=== PATIENT | female | born 1940 | race Caucasian/White ===

== ENCOUNTER 2018-03-19 07:04 | Inpatient (IN) | payer MEDICARE, OTHER ==
[~2018-03-19] VITALS: Ht 175.3 cm; Wt 52.2 kg
[~2018-03-19 07:04] MED LIST: CARAFATE1 GM/10 ML PO; NEXIUM20 M1; TYLENOL; [UNRECOGNIZED DRUG - OTHER] SQ
[2018-03-19] MEDS ORDERED: SODIUM CHLORIDE 0.9% 1000ML 1,000 ML IV STA (08:22)
[2018-03-19] MEDS ORDERED: ONDANSETRON HCL INJ 2 MG/ML VIAL IV STA (08:22)
[2018-03-19] MEDS ORDERED: MORPHINE SULFATE 2 MG/ML SYR IV STA (08:22)
--- NOTE | 2018-03-19 08:26 | Diagnostic Imaging Report ---
Bilateral hip and AP radiograph of the pelvis HISTORY: Pain, fall COMPARISON: None FINDINGS: There is diffuse osteopenia. There is a mildly displaced intertrochanteric fracture through the left proximal femur. There is approximately 5 mm of maximal displacement. The left femoroacetabular alignment is maintained. Dedicated right hip radiographs demonstrate no evidence of acute fracture or malalignment. AP radiograph of the pelvis demonstrates no other acute displaced fractures. Bowel gas partially obscures visualization of the sacrum, which limits evaluation. There are moderate degenerative changes of bilateral hips and degenerative changes of the lower lumbar spine. Surgical clips are present in the pelvis. Bilateral calcified phleboliths. IMPRESSION: Acute, mildly displaced intertrochanteric fracture through the left proximal femur. No evidence of acute right hip or pelvic fracture. Signed by: Dr. De Delatorre MD on 03/19/2018 8:22 AM
[2018-03-19] MEDS ORDERED: MORPHINE SULFATE INJ 4 MG/ML INJ IV NR (09:00)
[2018-03-19 10:19] LABS: HEMATOCRIT 41.5 % (34.2-44.1); HEMOGLOBIN 13.6 g/dL (12.0-16.0); MEAN CORPUSCULAR HEMOGLOBIN 30.7 pg (28-32); MEAN CORPUSCULAR HGB CONC 32.8 g/dL (31-35); MEAN CORPUSCULAR VOLUME 93.7 fL (81-99); PLATELET COUNT 172 x10e3/uL (140-360); RED BLOOD COUNT 4.43 x10e6/uL (3.6-5.1); RED CELL DISTRIBUTION WIDTH 12.7 % (11.7-14.4)
[2018-03-19 10:20] LABS: BASOPHILS % 0.4 % (0.0-1.0); LYMPHOCYTES # (AUTO) 0.7 (1.0-3.2); LYMPHOCYTES % 9.2 % (18.0-39.1); MONOCYTES # (AUTO) 0.9 (0.2-0.8); MONOCYTES % 11.1 % (4.4-11.3); NEUTROPHILS # (AUTO) 6.3 (2.1-6.9); NEUTROPHILS % 78.9 % (38.7-80.0)
--- NOTE | 2018-03-19 10:21 | Diagnostic Imaging Report ---
Examination: Single AP view of the chest. COMPARISON: None. INDICATION: Status post fall IMPRESSION: 1. Lines and Tubes: None 2. Lungs are well-inflated. 3-4 mm nodular density projecting in the right upper lung likely represents a calcified trauma. Lungs are grossly clear. No consolidation or pulmonary edema. No effusion or pneumothorax. 3. Cardiomediastinal silhouette is normal. Pulmonary vasculature is normal. 4. No acute bony abnormalities. Signed by: Dr. Marcos Richards M.D. on 03/19/2018 10:17 AM
[2018-03-19 10:22] LABS: INR 0.96; PARTIAL THROMBOPLASTIN TIME 28.3 seconds (23.8-35.5); PROTHROMBIN TIME 13.7 seconds (11.9-14.5)
[2018-03-19 10:34] LABS: ANION GAP 12.8 mmol/L (8-16); BLOOD UREA NITROGEN 9 mg/dL (7-26); BUN/CREATININE RATIO 13 (6-25); CARBON DIOXIDE 27 mmol/L (22-29); CHLORIDE 107 mmol/L (98-107); CREATININE, SERUM 0.69 mg/dL (0.57-1.11); EST GLOMERULAR FILTRATION RATE > 60 ML/MIN (60-); POTASSIUM 3.8 mmol/L (3.5-5.1); SODIUM 143 mmol/L (136-145)
[2018-03-19 10:35] LABS: ALANINE AMINOTRANSFERASE 23 IU/L (0-55); ALBUMIN 3.4 g/dL (3.5-5.0); ALBUMIN/GLOBULIN RATIO 1.2 (0.8-2.0); ALKALINE PHOSPHATASE 106 IU/L (40-150); CALCIUM 9.1 mg/dL (8.4-10.2); CREATINE KINASE 138 IU/L (29-168); GLUCOSE 123 mg/dL (74-118)
[2018-03-19] MEDS: SODIUM CHLORIDE 0.9% 1000ML 1,000 ML IV SCH ×2 (10:47→20:41)
[2018-03-19] MEDS ORDERED: ONDANSETRON HCL INJ 2 MG/ML VIAL IV PRN (11:00)
[2018-03-19 11:24] LABS: BILIRUBIN,URINE NEGATIVE (NEGATIVE); CLARITY,URINE CLEAR (CLEAR); COLOR,URINE YELLOW (YELLOW); KETONES,URINE NEGATIVE (NEGATIVE); LEUKOCYTE ESTERASE ,URINE NEGATIVE (NEGATIVE); NITRITE,URINE NEGATIVE (NEGATIVE); PROTEIN,URINE DIPSTICK NEGATIVE (NEGATIVE); URINE UROBILINOGEN 0.2 mg/dL (0.2 - 1)
--- OUTSIDE RECORDS SUMMARY | 2018-03-19 11:47 | XMS REPORT ---
Author Author [facility] Address Unknown Phone Unavailable Care Team Providers Care Pharmacy Technician Trainee Name Role Phone Luba DURÁN Unavailable Unavailable Problems This patient has no known problems. Allergies, Adverse Reactions, Alerts This patient has no known allergies or adverse reactions. Medications This patient has no known medications. Results Test Description Test Time Test Comments Text Results Atomic Results Result Comments CHEST SINGLE (PORTABLE) 2018-03-19 10:16:00 [facility] [address] [address] Patient Name: BHAVANI HERNANDEZ MR #: [id number] : 1940 Age/Sex: 77/F Req #: [id number] Adm Physician: Ordered by: ZEINAB DURÁN MD Report #: [id number] Location: ER Room/Bed: Procedure: [id number] DX/CHEST SINGLE (PORTABLE) Exam Date: 03/19/18 Exam Time: 924 REPORT STATUS: Signed Examination: Single AP view of the chest. DUANE RISON: None. INDICATION: Status post fall IMPRESSION: 1. Lines and Tubes: None 2. Lungs are well-inflated. 3-4 mm nodular density projecting in the right upper lung likely represents a calcified trauma. Lungs are grossly clear. No consolidation or pulmonary edema. No effusion or pneumothorax. 3. Cardiomediastinal silhouette is normal. Pulmonary vasculature is normal. 4. No acute bony abnormalities. Signed by: Dr. Jasper Richards M.D. on 03/19/2018 10:17 AM Dictated By: JASPER RICHARDS MD 16 Transcribed By: RUDDY on 03/19/181016 COPY TO: ZEINAB DURÁN MD HIPS BILAT 3-4VWS (+/- PELVIS) 2018-03-19 08:16:00 [address] [address] Patient Name: BHAVANI HERNANDEZ MR #: [id number] : 1940 Age/Sex: 77/F Req #: [id number] Adm Physician: Ordered by: ZEINAB DURÁN MD Report #: [id number] Location: ER Room/Bed: Procedure: [id number] DX/HIPS BILAT 3-4VWS (+/- PELVIS) Exam Date: Exam Time: REPORT STATUS: Signed Bilateral hip and AP radiograph of the pelvis HISTORY: Pain, fall COMPARISON: None FINDINGS: There is diffuse osteopenia. There is a mildly displaced intertrochanteric fracture through the left proximal femur. There is approximately 5 mm of maximal displacement. The left femoroacetabular alignment is maintained. Dedicated right hip radiographs demonstrate no evidence of acute fracture or malalignment. AP radiograph of the pelvis demonstrates no other acute displaced fractures. Bowel gas partially obscures visualization of the sacrum, which limits evaluation. There are moderate degenerative changes of bilateral hips and degenerative changes of the lower lumbar spine. Surgical clips are present in the pelvis. Bilateral calcified phleboliths. IMPRESSION: Acute, mildly displaced intertrochanteric fracture through the left proximal femur. No evidence of acute right hip or pelvic fracture. Signed by: Dr. Mira Arvizu MD on 03/19/2018 8:22 AM Dictated By: MIRA ARVIZU MD 1 Transcribed By: RUDDY on 03/19/18821 COPY TO: ZEINAB DURÁN MD
[2018-03-19 12:06] LABS: BACTERIA,URINE MODERATE /HPF; EPITHELIAL CELLS,URINE RARE /LPF; RBC,URINE 0-5 /HPF (0-5); WBC,URINE (MAN) 0-5 /HPF (0-5)
--- NOTE | 2018-03-19 12:47 | NUR ---
BROTHER OF PT AT BEDSIDE AND HE MENTIONED THAT DR. LEWIS HAS SPOKE WITH HIM AND HIS SISTER BOTH AT LENGTH RE POC/PENDING SX FOR THE MORNING.
--- NOTE | 2018-03-19 14:22 | Consultation ---
DATE OF CONSULTATION: March 19, 2018 CHIEF COMPLAINT: Left hip pain. HISTORY OF PRESENT ILLNESS: This patient is a 77-year-old female with a significant history of dementia, who presents to the ER complaining of left hip pain and inability to walk. The patient has difficulty giving a clear history due to her dementia. Further history is obtained from her brother. Apparently, she had a fall yesterday evening. She was unable to bear weight on the left lower extremity. She was brought into the ER today, and x-rays show a left hip fracture and thus orthopedics was consulted. PAST MEDICAL HISTORY: Hypertension, TIA, dementia, ulcerative colitis. PAST SURGICAL HISTORY: Cholecystectomy, hysterectomy and colon resection. SOCIAL HISTORY: Patient denies drinking or smoking. She lives with her brother and is . ALLERGIES: IODINE AND WARFARIN. PHYSICAL EXAMINATION GENERAL: This is a pleasant female in no apparent distress. She is to mildly confused. She is alert and oriented to name and date of . EXTREMITIES: Gross inspection of her left lower extremity shows it is shortened and slightly externally rotated. There is no bruising or skin changes around the left lateral thigh. She has pain with any attempts at passive range of motion in the left hip. Distal motor and sensory exams at the left foot and ankle are grossly intact. IMAGING: X-rays of the left hip and pelvis were reviewed and show a displaced left intertrochanteric hip fracture. ASSESSMENT AND PLAN: This is a 77-year-old female with a left hip fracture. The findings and options were discussed with the patient and her brother. She walked without assistance prior to this fall. Treatment is surgical fixation with an intramedullary hip screw. The risks and benefits of the surgery were explained. The patient states she understands and wishes to proceed. The recovery was discussed. She will likely need to go to a long term facility after her hospital stay. All of this was discussed with her brother. They both state they understand and wish to proceed. We will plan on putting her on the schedule early tomorrow. DICTATED BY SOHEILA LEWIS PA-C Job#: [id number] AR
[2018-03-19 15:15] VITALS: BP 122/78
[2018-03-19] MEDS ORDERED: DESFLURANE 240 ML BTL INH ONE (15:26)
[2018-03-19] MEDS ORDERED: PROPOFOL IV EMULSION 10 MG/ML 20 ML VIAL ONE (15:26)
[2018-03-19] MEDS ORDERED: LIDOCAINE HCL 2% LOCAL INJ 5 ML SDV VIAL INJ ONE (15:26)
[2018-03-19] MEDS ORDERED: ACETAMINOPHEN 1000 MG/100 ML IV ONE (15:26)
[2018-03-19 16:21] VITALS: BP 176/86
[2018-03-19] MEDS ORDERED: MIRTAZAPINE15 MG PO (16:36)
[2018-03-19] MEDS ORDERED: ATORVASTATIN CA10 MG PO (16:36)
[2018-03-19] MEDS ORDERED: ARICEPT5 MG PO (16:36)
[2018-03-19] MEDS ORDERED: DICYCLOMINE HCL10 MG (16:36)
[2018-03-19] MEDS ORDERED: NAMENDA10 MG (16:36)
--- NOTE | 2018-03-19 19:57 | NUR ---
consent unsigned on top of chart. patients daughter stated that she has not spoken with darren dobbins and would like to prior to signing consent. this nurse went over consent with daughter. informed daughter of procedure time of 0900 tomorrow morning.
[2018-03-19 20:00] VITALS: BP 112/66
[2018-03-19] MEDS: MORPHINE SULFATE INJ 4 MG/ML INJ IV PRN (20:41)
[2018-03-19 21:10] VITALS: BP 112/66
[2018-03-20] VITALS (7 sets, daily range): BP systolic 107–152; BP diastolic 61–72
[2018-03-20 04:12] LABS: CREATINE KINASE 100 IU/L (29-168)
[2018-03-20 05:40] LABS: BASOPHILS % 0.5 % (0.0-1.0); EOSINOPHILS # (AUTO) 0.1 (0.0-0.4); EOSINOPHILS % 0.8 % (0.0-6.0); HEMATOCRIT 35.2 % (34.2-44.1); HEMOGLOBIN 11.5 g/dL (12.0-16.0); LYMPHOCYTES # (AUTO) 1.5 (1.0-3.2); LYMPHOCYTES % 23.9 % (18.0-39.1); MEAN CORPUSCULAR HGB CONC 32.7 g/dL (31-35); MEAN CORPUSCULAR VOLUME 94.9 fL (81-99); MONOCYTES # (AUTO) 0.9 (0.2-0.8); MONOCYTES % 14.8 % (4.4-11.3); NEUTROPHILS # (AUTO) 3.8 (2.1-6.9); NEUTROPHILS % 59.5 % (38.7-80.0); PLATELET COUNT 139 x10e3/uL (140-360); RED BLOOD COUNT 3.71 x10e6/uL (3.6-5.1)
[2018-03-20] MEDS: MORPHINE SULFATE INJ 4 MG/ML INJ IV PRN ×3 (06:00→20:57)
[2018-03-20 06:01] LABS: BLOOD UREA NITROGEN 8 mg/dL (7-26); BUN/CREATININE RATIO 13 (6-25); CALCIUM 8.1 mg/dL (8.4-10.2); CARBON DIOXIDE 26 mmol/L (22-29); CHLORIDE 109 mmol/L (98-107); CREATININE, SERUM 0.61 mg/dL (0.57-1.11); EST GLOMERULAR FILTRATION RATE > 60 ML/MIN (60-); GLUCOSE 99 mg/dL (74-118); SODIUM 141 mmol/L (136-145)
--- NOTE | 2018-03-20 07:00 | NUR ---
SHIFT REPORT RECEIVED FROM NIGHT RN. PT DENIES NEEDS AT THIS TIME.
[2018-03-20] MEDS ORDERED: CEFAZOLIN SOD 1 GM VIAL IV ONE (08:00)
[2018-03-20] MEDS ORDERED: CEFAZOLIN SOD 2 GM/D5W 50ML 50 ML IV ONE (08:30)
--- NOTE | 2018-03-20 08:45 | NUR ---
PT OFF THE FLOOR TO OR.
[2018-03-20] MEDS: SODIUM CHLORIDE 0.9% 1000ML 1,000 ML IV SCH ×3 (09:52→19:52)
[2018-03-20] MEDS ORDERED: PROMETHAZINE HCL (IM) 25 MG/ML VIAL INJ PRN (10:00)
[2018-03-20] MEDS ORDERED: HYDROCODONE/APAP 5MG-325MG TAB PO PRN (10:00)
[2018-03-20] MEDS ORDERED: ACETAMINOPHEN 650 MG SUPP PR PRN (10:00)
[2018-03-20] MEDS ORDERED: ONDANSETRON HCL INJ 2 MG/ML VIAL IV PRN (10:00)
[2018-03-20] MEDS ORDERED: ZOLPIDEM TARTRATE 5 MG TAB PO PRN (10:00)
[2018-03-20] MEDS ORDERED: DOCUSATE SODIUM 100 MG CAP PO PRN (10:00)
[2018-03-20] MEDS ORDERED: KETOROLAC TROMETHAMINE 30 MG/ML VIAL IV PRN (10:00)
[2018-03-20] MEDS ORDERED: DIPHENHYDRAMINE HCL INJ 50 MG/ML VIAL IM/IV PRN (10:00)
[2018-03-20] MEDS ORDERED: HYDROCODONE/APAP 7.5MG-325MG 1 EA TAB PO PRN (10:00)
--- NOTE | 2018-03-20 10:41 | NUR ---
Went to pt room to discuss dc plans. Pt still is in surgery area. CM to follow up later.
--- NOTE | 2018-03-20 11:05 | NUR ---
PT BACK TO THE FLOOR FROM PACU. VITALS WNL. PT AWAKE. PT DENIES PAIN. FRIEND AT BEDSIDE. FOOT PUMPS PLACED, RABIA HOSE AND ICE PACK TO SURGICAL SITE. PT DENIES FURTHER NEEDS AT THIS TIME.
--- NOTE | 2018-03-20 11:27 | Operative Report ---
DATE OF PROCEDURE: March 19, 2018 The patient was brought to the operating room for induction of anesthesia. Throughout this case, my PA's assistance was necessary for retraction of soft tissue and positioning of the extremity. This allows for efficient and technically successful execution of the operation and is considered medically necessary. PREOPERATIVE DIAGNOSIS: Left hip intertrochanteric fracture. POSTOPERATIVE DIAGNOSIS: Left hip intertrochanteric fracture. PROCEDURE: Open reduction internal fixation left hip with intramedullary hip screw. INDICATIONS: The patient is a 77-year-old female with advanced dementia. She fell and sustained an intertrochanteric fracture of her left hip. The findings and options have been discussed with her daughter who has power of trial attorney. We plan on open reduction with internal fixation using an intramedullary hip screw. The risks and benefits have been explained. She states she understands and wishes to proceed. DESCRIPTION OF PROCEDURE: The patient brought to the operating room and placed under general anesthetic. She received prophylactic antibiotics in the holding area. She was positioned in the fracture table with gentle traction on the left lower extremity and the C-arm image intensifier was used to confirm anatomic reduction of the fracture. A preoperative time out was performed. A small incision was made over the tip of the greater trochanter. A curved awl was used to advance the guide pin down the femoral canal. This was checked in the AP and lateral plane. The proximal portion was gently over-reamed. A 13 mm reamer was passed by hand without any significant resistance. I elected to use a long nail. A 360 mm x 13 mm nail was advanced down the femoral canal. A 95 mm lag screw was placed into the femoral head. Again, this was checked in the AP and lateral plane. No distal fixation was felt to be necessary. The wounds were irrigated and closed. Estimated blood loss was 20 mL. At the end of the procedure all needle and sponge counts were correct. Job#: [id number] SENA
[2018-03-20] MEDS: ACETAMINOPHEN 1000 MG/100 ML IV SCH ×2 (11:44→17:51)
[2018-03-20] MEDS: CEFAZOLIN SOD 1 GM/D5W 50ML 50 ML IV SCH ×2 (14:11→22:12)
--- NOTE | 2018-03-20 14:45 | NUR ---
WHEN PT ACCESSED THE PT BY STANDING AT BEDSIDE. A SMALL AMOUNT OF FRESH GALI BLOOD FOUND ON THE PAD FROM RECTAL AREA. ABOUT 2 CC SPREAD. CALL MADE TO CHANDRAKATN RODRIGUEZ AND CALL BACK WITH ORDERS FOR A STAT H&H FOLLOWED AGAIN BY ANOTHER IN THE AM. WILL CONTINUE TO MONITOR.
[2018-03-20] MEDS ORDERED: FENTANYL CITRATE/PF 100MCG/2 ML INJ ONE (14:54)
[2018-03-20 16:53] LABS: HEMATOCRIT 33.1 % (34.2-44.1); HEMOGLOBIN 10.8 g/dL (12.0-16.0)
[2018-03-20] MEDS: ASPIRIN 325 MG TAB PO SCH (17:51)
[2018-03-20] MEDS: CELECOXIB 100 MG CAP PO SCH (17:51)
[2018-03-21] VITALS (8 sets, daily range): BP systolic 109–131; BP diastolic 51–68
[2018-03-21] MEDS: ACETAMINOPHEN 1000 MG/100 ML IV SCH ×2 (00:59→06:19)
[2018-03-21] MEDS: SODIUM CHLORIDE 0.9% 1000ML 1,000 ML IV SCH ×3 (02:47→15:45)
[2018-03-21 05:53] LABS: BASOPHILS % 0.6 % (0.0-1.0); EOSINOPHILS # (AUTO) 0.1 (0.0-0.4); EOSINOPHILS % 2.2 % (0.0-6.0); HEMATOCRIT 28.7 % (34.2-44.1); HEMOGLOBIN 9.5 g/dL (12.0-16.0); LYMPHOCYTES # (AUTO) 1.1 (1.0-3.2); LYMPHOCYTES % 16.9 % (18.0-39.1); MEAN CORPUSCULAR HEMOGLOBIN 31.6 pg (28-32); MEAN CORPUSCULAR HGB CONC 33.1 g/dL (31-35); MEAN CORPUSCULAR VOLUME 95.3 fL (81-99); MONOCYTES # (AUTO) 0.7 (0.2-0.8); MONOCYTES % 11.3 % (4.4-11.3); NEUTROPHILS # (AUTO) 4.4 (2.1-6.9); NEUTROPHILS % 68.7 % (38.7-80.0); PLATELET COUNT 125 x10e3/uL (140-360); RED BLOOD COUNT 3.01 x10e6/uL (3.6-5.1); RED CELL DISTRIBUTION WIDTH 12.6 % (11.7-14.4)
[2018-03-21 06:15] LABS: ALANINE AMINOTRANSFERASE 14 IU/L (0-55); ALBUMIN 2.2 g/dL (3.5-5.0); ALKALINE PHOSPHATASE 68 IU/L (40-150); ANION GAP 10.7 mmol/L (8-16); BLOOD UREA NITROGEN 9 mg/dL (7-26); BUN/CREATININE RATIO 16 (6-25); CALCIUM 7.8 mg/dL (8.4-10.2); CARBON DIOXIDE 25 mmol/L (22-29); CHLORIDE 106 mmol/L (98-107); CREATININE, SERUM 0.56 mg/dL (0.57-1.11); EST GLOMERULAR FILTRATION RATE > 60 ML/MIN (60-); GLUCOSE 98 mg/dL (74-118); POTASSIUM 3.7 mmol/L (3.5-5.1); SODIUM 138 mmol/L (136-145)
[2018-03-21] MEDS: CEFAZOLIN SOD 1 GM/D5W 50ML 50 ML IV SCH (06:37)
--- NOTE | 2018-03-21 07:00 | NUR ---
SHIFT REPORT RECEIVED FROM NIGHT RN. PT DENIES NEEDS AT THIS TIME.
[2018-03-21] MEDS: MIRTAZAPINE 15 MG TAB PO SCH (08:45)
[2018-03-21] MEDS: CELECOXIB 100 MG CAP PO SCH ×2 (08:45→17:28)
[2018-03-21] MEDS: ASPIRIN 325 MG TAB PO SCH ×2 (08:45→17:28)
[2018-03-21] MEDS: MEMANTINE 10 MG TAB PO SCH ×2 (08:45→17:28)
[2018-03-21] MEDS ORDERED: ACETAMINOPHEN 1000 MG/100 ML IV PRN (10:00)
--- NOTE | 2018-03-21 10:26 | NUR ---
BOYCE REMOVED AT 1000 AND PINK PAD PLACED TO SACRAL WELL A DIAPER. PT TOLERATED. WILL MONITOR FOR VOIDING.
--- NOTE | 2018-03-21 17:02 | NUR ---
PT HAS VOIDED TWICE SINCE BOYCE REMOVAL. ONCE AT 1230 AND AGAIN AT 1545. PT DENIES FURTHER NEEDS.
[2018-03-21] MEDS: ATORVASTATIN 10 MG TAB PO SCH (20:18)
[2018-03-21] MEDS: DONEPEZIL HCL 5 MG TAB PO SCH (20:18)
--- NOTE | 2018-03-21 21:00 | NUR ---
Dressing changed to L hip. Patient tolerated well. Denies pain at this time.
[2018-03-22] VITALS (7 sets, daily range): BP systolic 121–154; BP diastolic 62–77
[2018-03-22] MEDS: SODIUM CHLORIDE 0.9% 1000ML 1,000 ML IV SCH ×3 (01:52→22:12)
--- NOTE | 2018-03-22 03:00 | NUR ---
Found patient removing dressing. No drainage. Wound care performed to L hip. Denies pain at this time.
[2018-03-22] MEDS: MIRTAZAPINE 15 MG TAB PO SCH (09:30)
[2018-03-22] MEDS: CELECOXIB 100 MG CAP PO SCH (09:30)
[2018-03-22] MEDS: MEMANTINE 10 MG TAB PO SCH ×2 (09:30→22:12)
[2018-03-22] MEDS: ASPIRIN 325 MG TAB PO SCH ×2 (09:30→17:57)
--- NOTE | 2018-03-22 09:43 | NUR ---
PT FAMILY STATES SHE "TAKES PILLS JUST FINE", AM MEDICATION GIVEN, PT SWALLOWED ALL BUT LAST ONE, PT CHEWED ASPIRIN, ENCOURAGE WATER INTAKE, PT DRANK MORE WATER, BLOODY DRAINAGE NOTED TO L HIP DRESSING, REMOVED, SMALL INCISION NOTED WITH BLOODY DRAINAGE, ABD PAD PLACED, SECURED WITH FOAM TAPE, WET DIAPER CHANGED, PINK DRESSING INTACT
--- NOTE | 2018-03-22 11:52 | NUR ---
MD VILLA AND SOHEILA PIMENTEL INTO SEE PT, DISCUSSED POC, MADE AWARE OF PT REMOVING DRESSING PER PM NURSE AND THAT NEW PRESSURE DRESSING APPLIED THIS AM, DRESSING REMOVED, SOHEILA PIMENTEL ACCESSED AND PLACED STERI STRIPS, NEW DRESSING APPLIED, PT TOLERATED WELL
--- NOTE | 2018-03-22 13:57 | NUR ---
CASE MANAGEMENT FOLLOW UP ASSESSMENT Vp Director Of Creative Strategy to bedside to discuss plan of care with patient/family. CM/SW role and care transitions discussed. Anticipated discharge plan discussed along with duration of care. CM discussed patients right to make decisions in care. CM/SW work hours given. Admit/Transfer: ED POA/Emergency contact: DAUGHTER IS LORENZO HERNANDEZ IS DECISION MAKER [phone] Current/Previous Home Health: NONE PCP/Follow-up Care: CHANDRAKANT Current/Previous DME: NILDA Other Services: NONE Employment Status: RETIRED Areas of Concerns: NONE AT THIS TIME Referral Needs: [facility] Education Needs: NONE AT THIS TIME IMM/INGRAM given and signed (if applicable): NO Goal for discharge: SNF PLACEMENT TO [facility] CM left business card at the bedside with contact information. Name and number was also written on the patients whiteboard. Patient verbalized understanding of discussion. CM will follow-up with ongoing discharge and transition of care needs.
--- NOTE | 2018-03-22 14:40 | NUR ---
SOCIAL WORK INITIAL ASSESSMENT Salvager Helper to bedside to discuss plan of care with patient/family. CM/SW role and care transitions discussed. Anticipated discharge plan discussed along with duration of care. CM/SW discussed patients right to make decisions in care. CM/SW work hours given. Patient lives: WITH BOYFRIENCriselda RAMIREZ [phone] DASEB HERNANDEZ IS DECISION MAKER [phone] Admit/Transfer: VIA ED FROM HOME POA/Emergency contact: DAUGHTER IS LORENZO HERNANDEZ IS DECISION MAKER [phone] Current/Previous Home Health: NONE PCP/Follow-up Care: CHANDRAKANT Current/Previous DME: NILDA Other Services: NONE Employment Status: RETIRED Areas of Concerns: NONE Referral Needs: SNF Education Needs: NONE IMM/INGRAM given and signed (if applicable): Goal for discharge: SNF BOYFRIENCriselda RAMIREZ STATED THAT HE WANTED [facility], SPOKE WITH DAUGHTER TO VERIFY AND SHE STATES NO GAVE LOCATIONS CLOSER TO HER [facility], SHE WILL GO LOOK AT FACILITIES AND CALL BACK WITH CHOICE. SHE STATES ASHLEY IS NOT TO MAKE DECISIONS FOR HER MOTHER. CM/SW left business card at the bedside with contact information. Name and number was also written on the patients whiteboard. Patient verbalized understanding of discussion. CM will follow-up with ongoing discharge and transition of care needs.
[2018-03-22] MEDS: CELECOXIB 200 MG CAP PO SCH (17:00)
--- NOTE | 2018-03-22 17:30 | NUR ---
PT REMOVED DRESSING TO LEFT HIP AGAIN, STERI STRIPS PLACED TO UPPER INCISION, AND SECURED WITH DRESSING, STERI STRIPS STILL INTACT TO LOWER INCISION, PT DIAPER CHANGED, REPOSITIONED, DAUGHTER AT BEDSIDE, REFUSING FOR PT TO TAKE CELBREX, STATES "HAS ULCERS, NOT SUPPOSED TO TAKE", EMAR NOTED
--- NOTE | 2018-03-22 19:45 | NUR ---
PATIENT IS DROWSY AND MOSTLY ASLEEP, SHE OPENS HER EYES AND QUICKLY GOES BACK TO SLEEP. NO RESPIRATORY DISTRESS OBSERVED, NO SIGN OF PAIN NOTED. BED ALARM ON, CALL LIGHT WITHIN EASY REACH. DRESSING DRY AND INTACT TO THE LEFT HIP, NON PITTING EDEMA NOTED TO THE LEFT HIP.
[2018-03-22] MEDS: ATORVASTATIN 10 MG TAB PO SCH (22:12)
[2018-03-22] MEDS: DONEPEZIL HCL 5 MG TAB PO SCH (22:12)
[2018-03-23] VITALS (7 sets, daily range): BP systolic 111–156; BP diastolic 60–81
--- NOTE | 2018-03-23 00:02 | NUR ---
PATIENT INCONTINENT OF URINE, KEPT CLEAN AND DRY. REPOSITION ON THE SIDE FOR COMFORT AND PRESSURE ULCER PREVENTION. PATIENT DENIES PAIN, NO RESPIRATORY DISTRESS OBSERVED. BED ALARM ON, CALL LIGHT WITHIN EASY REACH.
--- NOTE | 2018-03-23 04:53 | NUR ---
PATIENT IS ASLEEP, SHE'S EASY TO AROUSE. NO RESPIRATORY DISTRESS OBSERVED, SHE DENIES PAIN. BED ALARM ON, CALL LIGHT WITHIN EASY REACH.
--- NOTE | 2018-03-23 07:38 | NUR ---
handoff report rec'd during walking rounds. pt awake at this time, spouse at bedside. respirations are even and unlabored; pt denies pain at this time.
[2018-03-23] MEDS: MEMANTINE 10 MG TAB PO SCH ×2 (08:19→21:41)
[2018-03-23] MEDS: ASPIRIN 325 MG TAB PO SCH ×2 (08:19→17:26)
[2018-03-23] MEDS: SODIUM CHLORIDE 0.9% 1000ML 1,000 ML IV SCH ×2 (08:19→17:52)
[2018-03-23] MEDS: CELECOXIB 200 MG CAP PO SCH ×2 (08:19→17:26)
[2018-03-23] MEDS: MIRTAZAPINE 15 MG TAB PO SCH (08:19)
--- NOTE | 2018-03-23 12:50 | NUR ---
DAUGHTER CALLED AND STATES SHE CHOOSE [facility] AND WOULD LIKE CLINICALS TO BE FAXED TO THEM TO START THE PROCESS. SHE VOICED CONCERNS ABOUT THE "FRIEND AND HIS ABILITY TO ANSWER FOR HER MOTHER. SHE STATES THEY ARE NOT AND SHE IS THE ONE THAT IS TO MAKE DECISION FOR HER MOTHER. I SPOKE WITH PATIENT AND SHE AGREES THAT HER DAUGHTER IS THE ONE THAT SHOULD ASSIST HER WITH CHOICE AND DEFERS TO HER DAUGHTER LORENZO HERNANDEZ [phone].
--- NOTE | 2018-03-23 15:15 | NUR ---
PT APPROVED TO GO TO [address], [facility] [address] PHONE [phone]. FAMILY IS TO GO FILL OUT PAPERWORK AND ROOM ASSIGNMENT WILL BE GIVEN IN MORNING FOR DISCHARGE TOMORROW. EDUCATED FAMILY ABOUT IMM SIGNED FILED IN CHART AND LEFT COPY AT BEDSIDE.
--- NOTE | 2018-03-23 19:08 | NUR ---
Handoff report given to oncoming shift lab technician nurse.
--- NOTE | 2018-03-23 20:06 | NUR ---
PATIENT INCONTINENT OF URINE, SHE'S KEPT CLEAN AND DRY. DRESSING DRY AND INTACT TO THE LEFT HIP WITHOUT DRAINAGE, EDEMA WITH BRUISES TO THE LEFT HIP. PATIENT DENIES PAIN, BED ALARM ON, CALL LIGHT IN EASY REACH.
[2018-03-23] MEDS: DONEPEZIL HCL 5 MG TAB PO SCH (21:40)
[2018-03-23] MEDS: ATORVASTATIN 10 MG TAB PO SCH (21:41)
[2018-03-24] VITALS: BP 149/67
--- NOTE | 2018-03-24 00:18 | NUR ---
PATIENT IS RESTING QUIETLY IN BED, NO RESPIRATORY DISTRESS OBSERVED AND SHE DENIES TO THE LEFT HIP. DRESSING DRY AND INTACT TO THE LEFT HIP, WAS REPOSITION FOR COMFORT. BED ALARM ON, CALL LIGHT WITHIN EASY REACH.
[2018-03-24 04:00] VITALS: BP 128/65
--- NOTE | 2018-03-24 04:36 | NUR ---
WALKING ROUNDS MADE, NO RESPIRATORY DISTRESS OBSERVED. PATIENT DENIES PAIN TO THE LEFT HIP, BED ALARM ON AND CALL LIGHT WITHIN EASY REACH.
--- NOTE | 2018-03-24 05:19 | NUR ---
PATIENT WAS HEARD YELLING OUT FOR HER DAUGHTER. UPON ASSESSMENT, SHE HAS TAKEN OFF HER GOWN AND THE DRESSING WITH STERI-STRIPS FROM THE LEFT HIP INCISION SITE. SHE C/O PAIN TO THE LEFT HIP AND SHE WAS TRYING TO REMOVE THE RABIA HOSE. PATIENT INCONTINENT OF URINE, KEPT CLEAN AND DRY, INCISION SITE CLEANSE WITH WARM WATER. ABD DRESSING APPLIED TO THE SITE, PATIENT EDUCATED NOT TO PLAY WITH THE INCISION SITE. SHE WAS REPOSITION TO THE SIDE WITH PILLOW APPLIED, MEDICATED WITH NORCO 1TAB FOR PAIN. BED ALARM ON, CALL LIGHT WITHIN EASY REACH.
--- NOTE | 2018-03-24 07:00 | NUR ---
RECEIVED SHIFT CHANGE ROUNDING REPORT FROM NIGHT RN. PT DENIES NEEDS AT THIS TIME.
[2018-03-24 07:53] VITALS: BP 131/93
[2018-03-24 08:00] VITALS: BP 131/93
[2018-03-24] MEDS: MIRTAZAPINE 15 MG TAB PO SCH (08:48)
[2018-03-24] MEDS: MEMANTINE 10 MG TAB PO SCH (08:48)
[2018-03-24] MEDS: CELECOXIB 200 MG CAP PO SCH ×2 (08:48→17:18)
[2018-03-24] MEDS: ASPIRIN 325 MG TAB PO SCH ×2 (08:48→17:18)
[2018-03-24 12:11] VITALS: BP 130/60
--- NOTE | 2018-03-24 15:40 | NUR ---
REPORT CALLED TO RALF JOHNSON AT [facility].
[2018-03-24 16:24] VITALS: BP 129/61
--- NOTE | 2018-03-24 18:15 | NUR ---
PT'S IV DISCONTINUED WITH TIP INTACT, BLEEDING STOPPED AND DRESSING PLACED TO SITE.
--- NOTE | 2018-03-24 19:10 | NUR ---
RECEIVED THE PT IN REPORT.STABLE CONDITION.
--- NOTE | 2018-03-24 19:45 | NUR ---
V/S STABLE.AMBULANCE STAFF ARRIVED .TRANSFERRING THE PT TO [facility] ROOM @212 BY AMBULANCE IN A STABLE CONDITION.SENDING ALL THE BELONGINGS WITH FAMILY MEMBER.
== END 2018-03-24 19:49 | DRG 481 ==
LOC: ER 07:04 → ERHOLD 11:44 → MED/SURG 14:47
PROVIDERS: ADMIT Internal Medicine; ATTEND Internal Medicine
PROC: 0QS706Z Reposition Left Upper Femur with Intramedullary Internal Fixation Device, Open Approach (ICD-10-PCS; principal; 2018-03-19)
DX: S72.142A Displaced intertrochanteric fracture of left femur, initial encounter for closed fracture (principal); Z68.1 Body mass index [BMI] 19.9 or less, adult; F03.90 Unspecified dementia, unspecified severity, without behavioral disturbance, psychotic disturbance, mood disturbance, and anxiety; I10 Essential (primary) hypertension; S50.312A Abrasion of left elbow, initial encounter; R63.6 Underweight; W01.0XXA Fall on same level from slipping, tripping and stumbling without subsequent striking against object, initial encounter; Y93.01 Activity, walking, marching and hiking; Z86.73 Personal history of transient ischemic attack (TIA), and cerebral infarction without residual deficits; Y92.019 Unspecified place in single-family (private) house as the place of occurrence of the external cause; Z82.49 Family history of ischemic heart disease and other diseases of the circulatory system; Z88.8 Allergy status to other drugs, medicaments and biological substances; Z91.048 Other nonmedicinal substance allergy status; D64.9 Anemia, unspecified
CPT/HCPCS: 36415; 51700; 71045; 73522; 76000; 80048; 80053; 81001; 82550; 82553; 84484; 85014; 85018; 85025; 85610; 85730; 86850; 86900; 86920; 87086; 93005; 97139; 99284; C1713; J0690; J2001; J2270; J2405; J7030